=== PATIENT | male | born 1960 | race Hispanic/Latino ===

== ENCOUNTER 2016-09-27 22:32 | Emergency (ER) | payer MEDICAID ==
[~2016-09-27] VITALS: Ht 172.7 cm; Wt 68.0 kg
[2016-09-27] MEDS: TdaP Vaccine 0.5ml Syr IM ONE ×2 (22:45→22:53)
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
[2016-09-28 01:12] VITALS: BP 146/97
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
== END 2016-09-28 01:12 | disposition home or self-care (01) ==
LOC: EDBD 22:32 → EMR 09-28 01:02
DX: S02.2XXA Fracture of nasal bones, initial encounter for closed fracture (principal); Y04.2XXA Assault by strike against or bumped into by another person, initial encounter; Y92.89 Other specified places as the place of occurrence of the external cause; F10.129 Alcohol abuse with intoxication, unspecified; J32.9 Chronic sinusitis, unspecified
CPT/HCPCS: 70450; 70486; 90471; 90715; 99284